=== PATIENT | female | born 1990 | race Two or more races ===

== ENCOUNTER → 2024-08-19 | Outpatient (BNVA) | payer MEDICAID, SELFPAY | END | disposition home or self-care (01) | PROVIDERS: PCP Nurse Practitioner Primary Care; Referring Provider Nurse Practitioner Primary Care; Visit Provider Nurse Practitioner Family | DX: N64.4 Mastodynia (principal) | CPT/HCPCS: 99214 ==

== ENCOUNTER → 2024-08-23 | Outpatient (CLI) | payer MEDICAID, SELFPAY ==
--- NOTE | 2024-08-23 | XR_ITS ---
Examination: Left wrist 2 views Technique one AP lateral left wrist 2 views Exam date and time: August 23, 2024 1215 hours INDICATIONS: Left wrist pain beginning 2 months ago. FINDINGS: Mild osteoarthritis radiocarpal intercarpal and carpometacarpal joints No erosive arthritis No fracture or dislocation IMPRESSION: Mild diffuse osteoarthritis
== END | disposition home or self-care (01) ==
LOC: CDIM 11:14
PROVIDERS: PCP Nurse Practitioner Family; Referring Provider Nurse Practitioner Family; Visit Provider Nurse Practitioner Family
DX: M19.032 Primary osteoarthritis, left wrist (principal)
CPT/HCPCS: 73100

== ENCOUNTER → 2024-08-25 | Outpatient (BNVA) | payer MEDICAID, SELFPAY | END | disposition home or self-care (01) | PROVIDERS: PCP Nurse Practitioner Family; Referring Provider Nurse Practitioner Family; Visit Provider Nurse Practitioner Family | DX: M54.42 Lumbago with sciatica, left side (principal) | CPT/HCPCS: 96372; 99214; J1885 ==

== ENCOUNTER → 2024-09-14 | Outpatient (BNVA) | payer MEDICAID, SELFPAY | END | disposition home or self-care (01) | PROVIDERS: PCP Nurse Practitioner Family; Referring Provider Nurse Practitioner Family; Visit Provider Nurse Practitioner Family | DX: Z71.2 Person consulting for explanation of examination or test findings (principal); E55.9 Vitamin D deficiency, unspecified; R94.5 Abnormal results of liver function studies; E66.01 Morbid (severe) obesity due to excess calories; Z68.41 Body mass index [BMI] 40.0-44.9, adult; E78.5 Hyperlipidemia, unspecified; E28.2 Polycystic ovarian syndrome; E11.9 Type 2 diabetes mellitus without complications; Z91.199 Patient's noncompliance with other medical treatment and regimen due to unspecified reason | CPT/HCPCS: 99212; G0463 ==

== ENCOUNTER 2024-10-01 01:34 | Emergency (ER) | payer MEDICAID, SELFPAY ==
[2024-10-01 01:34] VITALS: BMI 44.9
[2024-10-01 01:53] VITALS: BP 137/81; PULSE 108; RESP 18; TEMP 36.8; O2SAT 98
[2024-10-01] MEDS: METOCLOPRAMIDE INJ 5 MG/ML VIAL 2 ML 10 MG IM (02:19)
--- NOTE | 2024-10-01 02:55 | EDNOTE_ITS ---
Nausea/Vomit./Diarrhea-RME/HPI General Chief complaint: Abdominal Pain Stated complaint: ABD PAIN Time Seen by Provider: 10/01/24 02:11 Arrival date/time: 10/01/24 01:34 34F with history of HTN, PCOS, and DM presents to ED with 2 days of gen ab pain/cramping, N/V, and non-bloody diarrhea. Recent dose increase with Ozempic. Limitations: no limitations Related Data Previous Rx's ?Medication ?Instructions ?Recorded ibuprofen 800 mg tablet 800 mg PO Q8H PRN pain #30 t abs 08/25/24 ergocalciferol (vitamin D2) 1,250 50,000 unit PO QWEEK 12 weeks #12 09/14/24 mcg (50,000 unit) capsule caps insulin glargine 100 unit/mL (3 10 unit (0.1 mL) subcu t BID 30 09/14/24 mL) subcutaneous pen (agl days #6 mL KwikPen U-100 Insulin) metformin 1,000 mg tablet 1,000 mg PO BID 90 days #180 tabs 09/14/24 pen needle, diabetic 32 gauge x #100 ea 09/14/24 1/ (BD Ultra-Fine Micro Pen Needle) rosuvastatin 10 mg tablet 10 mg PO HS #90 tabs 5 semaglutide 0.25 mg or 0.5 mg (2 0.25 mg (0.368 mL) rodriguez bcut QWEEK #3 09/14/24 mg/3 mL) subcutaneous pen injector mL (Ozempic) metoclopramide HCl 10 mg tablet 10 mg PO TID PRN nause a and 10/01/24 (Reglan) vomiting #30 tabs Allergies Allergy/AdvReac Type Severity Reaction Status Date / Time No Known Allergies Allergy Verified 09/14/24 15:26 Review of Systems Review of Systems Systems Reviewed: All systems reviewed, normal except as documented Constitutional Constitutional: Reports system reviewed and no additional complaints, except as documented, Denies fever(s) and Denies headache(s) ENT Ears, Nose, Mouth, and Throat: Denies disequilibrium and Denies headache(s) Cardiovascular Cardiovascular: Reports system reviewed and no additional complaints, except as documented, Denies chest pain and Denies dyspnea Respiratory Respiratory: Reports system reviewed and no additional complaints, except as documented, Denies cough and Denies dyspnea Gastrointestinal Gastrointestinal: Reports system reviewed and no additional complaints, except as documented, Reports as per HPI, Reports abdominal pain, Reports diarrhea, Reports nausea and Reports vomiting Neurologic Neurologic: Reports system reviewed and no additional complaints, except as documented, Denies confusion, Denies disequilibrium and Denies headache(s) Psychiatric Psychiatric: Denies confusion Past Medical History Social History SMOKING STATUS: Never smoker SECOND HAND EXPOSURE: No ED Exam General Limitations: Present no limitations General appearance: Present alert and in no apparent distress Head Head exam: Present atraumatic Eye Eye exam: Present normal appearance, PERRL and EOMI ENT ENT exam: Present normal exam, normal oropharynx and mucous membranes moist Neck Neck exam: Present normal inspection, full ROM and trachea midline Chest Chest inspection: Present normal inspection and symmetric chest wall rise Respiratory Respiratory exam: Present normal lung sounds bilaterally Cardiovascular Cardiovascular exam: Present regular rate, normal rhythm and normal heart sounds Abdominal Exam Abdominal exam: Present soft and normal bowel sounds Extremities Exam Extremities exam: Present normal inspection and full ROM Back Exam Back exam: Present normal inspection and full ROM Neurological Exam Neurological exam: Present alert, oriented X3 and CN II-XII intact Psychiatric Psychiatric exam: Present normal affect and normal mood Skin Skin exam: Present warm, dry, intact and normal color Course Quality Measures none Orders Category Date Time Status Metoclopramide Inj [Reglan Inj] Med 10/01/24 02:12 Discontinued 10 mg IM X1 ONE Vital Signs Vital signs: Vital Signs Temperature 98.3 F 10/01/24 01:53 Pulse Rate 108 H 10/01/24 01:53 Respiratory Rate 18 10/01/24 01:53 Blood Pressure 137/81 H 10/01/24 01:53 Pulse Oximetry (%) 98 10/01/24 01:53 Oxygen Delivery Method Room Air 10/01/24 01:53 O2 at 98% on RA and WNLs Nausea/Vomiting/Diarrhea MDM Narrative MDM Narrative:: 34F with history of HTN, PCOS, and DM presents to ED with 2 days of gen ab pain/cramping, N/V, and non-bloody diarrhea. Recent dose increase with Ozempic. Physical exam reveals no ab tenderness. Patient is afebrile, calm, and alert. Likely drug adverse effect. PO challenge passed. Patient data External records reviewed:: [facility] previous records Clinical information provided by:: patient Social determinants that could affect healthcare access:: none Patient has the following chronic illnesses:: HTN, PCOS, and DM How is presenting disease/condition affected by chronic disease/condition?: exacerbated by Evaluation data The following diagnostics were reviewed and interpreted by me:: other (specify) (none) Lab and/or radiology exams considered but not ordered:: not ordered Interpretation Summary: n/a Medications / Prescriptions Medications / Prescriptions considered but not ordered:: ordered Medication administrations:: Medication Administration History Discontinued Medications Metoclopramide HCl (Metoclopramide Inj 5 Mg/Ml Vial 2 Ml) 10 mg IM X1 ONE; Protocol Stop: 10/01/24 02:13 Last Admin: 10/01/24 02:19 Dose: 10 mg Documented By: MIKY marsh Consultations Consultation(s) initiated? (list below): No Diagnosis Nausea Differential Diagnosis: traveler's diarrhea, food poisoning, gastroenteritis, clostridium difficile infection, drug-induced nausea and vomiting, dehydration and other (drug adverse effect) Most likely diagnosis given after review of the tests above:: drug adverse effect Admission Indicated Admission indicated?: not indicated Admission Request Was there a request for admission?: No Disposition Plan Disposition Plan: Discharge Discharge Attestation Discharge Attestation: The patient and all family members were given an opportunity to ask questions and understood the discharge instructions. Discharge instructions specifically effects, indications for sooner follow up or return to the emergency department, and the expected course of current diagnosis. Patient condition: Stable Discharge Plan Plan Patient Disposition: HOME (Self Care) Disposition Comment: Stable Prescriptions/Referrals Prescriptions/Med Rec: New metoclopramide HCl [Reglan] 10 mg tablet 10 mg PO TID PRN (Reason: nausea and vomiting) Qty: 30 0RF No Action Ozempic 0.25 mg or 0.5 mg (2 mg/3 mL) pen injector 0.25 mg subcut QWEEK Qty: 3 0RF Rx Instructions: for 4 weeks rosuvastatin 10 mg tablet 10 mg PO HS Qty: 90 0RF (DME) pen needle, diabetic [BD Ultra-Fine Micro Pen Needle] 32 gauge x 1/4 needle See Rx Instructions .ROUTE .MEDSUPPLY Qty: 100 0RF Rx Instructions: as directed insulin glargine [Basaglar KwikPen U-100 Insulin] 100 unit/mL (3 mL) insulin pen 10 unit subcut BID 30 Days Qty: 6 1RF ergocalciferol (vitamin D2) 1,250 mcg (50,000 unit) capsule 50,000 unit PO QWEEK 84 Days Qty: 12 0RF metformin 1,000 mg tablet 1,000 mg PO BID 90 Days Qty: 180 0RF ibuprofen 800 mg tablet 800 mg PO Q8H PRN (Reason: pain) Qty: 30 0RF Referrals: Lilian [facility] [employer],Elvie Dumont [employer] [Primary Care Provider] - In 1 week Problem List Clinical Impression: Adverse drug effect Patient/Caregiver Discharge Instructions Education Materials: ED Drug Reaction, Other Additional Instructions: Please follow-up with PCP within 24-48 hours and return immediately if symptoms worsen. Stay hydrated. Print Language: Citizen Of [place] Stand Alone Forms: Patient Portal Info Letter PA/[employer]TE[employer]PER[employer] Supervising Physician VERONICA/BAKARI Supervising Physician: Dr. Byrd
== END 2024-10-01 03:35 | disposition home or self-care (01) ==
PROVIDERS: Emergency Provider Emergency Medicine; PCP Nurse Practitioner Family
DX: R11.2 Nausea with vomiting, unspecified (principal); R19.7 Diarrhea, unspecified; T50.995A Adverse effect of other drugs, medicaments and biological substances, initial encounter; R10.9 Unspecified abdominal pain; I10 Essential (primary) hypertension; E28.2 Polycystic ovarian syndrome; E11.9 Type 2 diabetes mellitus without complications
CPT/HCPCS: 96372; 99283; J2765

== ENCOUNTER → 2024-10-13 | Outpatient (BNVA) | payer MEDICAID, SELFPAY | END | disposition home or self-care (01) | PROVIDERS: PCP Nurse Practitioner Family; Referring Provider Nurse Practitioner Family; Visit Provider Nurse Practitioner Family | DX: E11.9 Type 2 diabetes mellitus without complications (principal); E66.9 Obesity, unspecified; Z79.4 Long term (current) use of insulin; Z68.42 Body mass index [BMI] 45.0-49.9, adult | CPT/HCPCS: 83036; 99214 ==

== ENCOUNTER → 2024-10-26 | Outpatient (CLI) | payer MEDICAID, SELFPAY ==
--- NOTE | 2024-10-26 14:30 | XR_ITS ---
Examination: Breast ultrasound, unilateral, left complete Date and time of exam: October 26, 2024 1438 hrs. Indications: Left breast pain 4 months, family history breast cancer Technique: Real-time hernandez scale ultrasonographic imaging performed left breast including all 4 quadrants as well as nipple retroareolar and axillary region. Findings: No cystic or solid mass Impression: BI-RADS Category 1: Negative study
== END | disposition home or self-care (01) ==
LOC: CDIM 14:22
PROVIDERS: PCP Nurse Practitioner Family; Referring Provider Nurse Practitioner Family; Visit Provider Nurse Practitioner Family
DX: N64.4 Mastodynia (principal)
CPT/HCPCS: 76641

== ENCOUNTER → 2024-11-10 | Outpatient (BNVA) | payer MEDICAID, SELFPAY | END | disposition home or self-care (01) | PROVIDERS: PCP Nurse Practitioner Family; Referring Provider Nurse Practitioner Family; Visit Provider Nurse Practitioner Family | DX: E11.69 Type 2 diabetes mellitus with other specified complication (principal); E66.9 Obesity, unspecified; Z79.4 Long term (current) use of insulin | CPT/HCPCS: 83036; 99214 ==